=== PATIENT | female | born 1945 | race Caucasian/White ===

== ENCOUNTER 2016-03-04 18:27 | Outpatient (CLI) | payer OTHER ==
[~2016-03-04 18:27] MED LIST: ACETAMINOPHEN650 MG PR; BACLOFEN20 MG PO; CARDIZEM120 MG PO; COUMADIN2.5 MG PO; COUMADIN5 MG PO; HYDROCHLOROTHIA25 MG PO; LIPITOR40 MG PO; LOVENOX80 MG/0.8 SC; LYRICA100 MG PO; METFORMIN HCL500 MG PO; MICRO-K 10 EQU10 MEQ PO; OXYCODONE/ACETA1 TA1 PO; PERCOCET1 TA1 PO; TIZANIDINE HCL2 MG PO; VISTARIL25 MG PO; VITAMIN C500 M1 PO; VOLTAREN1 % TOP; ZESTRIL10 MG PO
--- NOTE | 2016-03-04 20:45 | DIAGNOSTIC IMAGING REPORT ---
PROCEDURE: XR RIBS UNILAT W/PA CHEST-LT INDICATION: LEFT ANTERIOR POSTERIOR AXILLARY LINE PAIN TECHNIQUE: Two views of the left ribs with single PA view chest. COMPARISON: Comparison made to chest x-ray on 01/26/2015. FINDINGS: LEFT RIBS: Findings suggest mildly impacted acute fractures of the left lateral ninth and tenth ribs. The rest of the left ribs are normal. CHEST: Lungs are clear. Heart and mediastinum are normal. Mild degenerative changes of the thoracic spine. 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 IMPRESSION: 1. There are fractures of the left lateral ninth and tenth ribs (acute versus subacute). 2. 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 Otherwise negative chest.
== END 2016-03-04 23:00 ==
LOC: XR SRH 18:27
DX: S22.42XA Multiple fractures of ribs, left side, initial encounter for closed fracture (principal)

== ENCOUNTER 2016-03-15 12:00 | Outpatient (CLI) | payer OTHER ==
--- NOTE | 2016-03-15 16:28 | DIAGNOSTIC IMAGING REPORT ---
PROCEDURE: NM BONE/JOINT WHOLE BODY INDICATION: WIDE SPREAD MUSCULOSKELETAL PAIN TECHNIQUE: 26 mCi of technetium-99m MDP. Blood flow, blood pool, and delayed static images. COMPARISON: Bone scan 02/02/2016 and rib x-rays 03/04/1969 FINDINGS: Focal of mildly increased uptake of the tips of the right fourth and fifth ribs, unchanged, most consistent with post-traumatic changes. There is also mild increased uptake of the right shoulder joint and cervical spine consistent with degenerative changes. Left hip arthroplasty. Minor scoliosis of the thoracolumbar spine. IMPRESSION: 1. Stable increased uptake of the tips of the right fourth and fifth ribs consistent with post-traumatic changes 2. Mild degenerative changes of the right shoulder and cervical spine 3. Left hip arthroplasty
== END 2016-03-15 23:00 ==
LOC: NM SRH 12:00
DX: M79.1 Myalgia (principal); M19.011 Primary osteoarthritis, right shoulder; Z96.642 Presence of left artificial hip joint